=== PATIENT | female | born 1945 | race Caucasian/White ===

== ENCOUNTER 2018-09-23 15:31 | Emergency (ER) | payer MEDICARE, OTHER ==
[~2018-09-23] VITALS: Ht 160 cm; Wt 136.1 kg
[~2018-09-23 15:31] MED LIST: ACEDIPPM; DICL75ER PO; GLYB2.5; INS70/30PN; LISI20 PO; METF500; Prozac20 MG PO
[2018-09-23 16:27] LABS: BASOPHILS ABSOLUTE AUTO 0.05 K/mm3 (0.00-0.23); BASOPHILS PERCENT AUTO 0 % (0-2); EOSINOPHILS ABSOLUTE AUTO 0.03 K/mm3 (0.00-0.68); EOSINOPHILS PERCENT AUTO 0 % (0-6); Hematocrit 41.5 % (33.0-51.0); Hemoglobin 13.2 g/dL (11.5-16.0); IMMATURE GRAN ABSOLUTE AUTO 0.08 K/mm3 (0.00-0.10); IMMATURE GRAN PERCENT AUTO 1 % (0-1); LYMPHOCYTES ABSOLUTE AUTO 0.98 K/mm3 (0.84-5.20); LYMPHOCYTES PERCENT AUTO 8 % (21-46); MONOCYTES ABSOLUTE AUTO 1.24 K/mm3 (0.16-1.47); MONOCYTES PERCENT AUTO 11 % (4-13); Mean Corpuscular HGB 30.1 pg (26.0-34.0); Mean Corpuscular HGB Conc 31.8 g/dL (31.5-36.5); Mean Corpuscular Volume 95 fL (80-100); Mean Platelet Volume 11.7 fL (9.1-12.4); NEUTROPHILS ABSOLUTE AUTO 9.35 K/mm3 (1.96-9.15); NEUTROPHILS PERCENT AUTO 80 % (41-73); Platelet Count 269 K/mm3 (150-400); RDW Coefficient Variation 14.6 % (11.7-14.2); RDW Standard Deviation 51.4 fL (35.1-46.3); Red Blood Cell Count 4.39 M/mm3 (3.80-5.20); White Blood Cell Count 11.73 K/mm3 (4.00-11.30)
[2018-09-23 16:49] LABS: Alanine Aminotransfer (ALT/SGP 215 U/L (12-78); Albumin, Blood 3.5 g/dL (3.4-5.0); Albumin/Globulin Ratio 0.7 (0.8-1.8); Alk Phos 497 U/L (50-136); Anion Gap 7 mmol/L (6-16); Aspartate Aminotrans (AST/SGOT 130 U/L (12-37); Bilirubin, Total 1.1 mg/dL (0.1-1.0); Blood Urea Nitrogen 25 mg/dL (8-24); Bun/Creatinine Ratio 26.3 (12.0-20.0); CO2, Blood 18 mmol/L (21-32); Calcium, Blood 9.5 mg/dL (8.5-10.1); Chloride, Blood 109 mmol/L (98-108); Creatinine, Blood 0.95 mg/dL (0.40-1.00); Glomerular Filtration Rate >60 (60-); Glucose, Blood 142 mg/dL (70-99); Sodium, Blood 134 mmol/L (136-145); Total Protein, Blood 8.5 g/dL (6.4-8.2)
[2018-09-23 16:50] LABS: Influenza A Negative (NEGATIVE); Influenza B Negative (NEGATIVE)
[2018-09-23] MEDS ORDERED: POTCHL20ER PO (17:51)
[2018-09-23] MEDS ORDERED: Ativan1 MG PO (17:51)
[2018-09-23] MEDS ORDERED: Glipizide ER2.5 MG PO (17:51)
[2018-09-23 18:25] LABS: Source, Urine Clean Catch
[2018-09-23 18:52] LABS: Appearance, Urine Clear (Clear); Blood, Urine 2+ (Neg); Color, Urine Yellow (P-Yellow); Glucose Qualitative, Urine Neg (Neg); Ketones, Urine Neg (Neg); Leukocyte Esterase, Urine 2+ (Neg); Nitrite, Urine Pos (Neg); Protein, Urine 2+ (Neg); Urobilinogen, Urine 2+ (Normal)
[2018-09-23 19:10] LABS: Bilirubin, Urine 1+ (Neg)
[2018-09-23 19:14] LABS: Bacteria Mod /hpf; Red Blood Cells, Urine 0-2 /hpf (0-2); Squamous Epithelial Cells Few /hpf (Few)
[2018-09-23] MEDS ORDERED: HUMULIN 70100 UNIT/2 SC (22:40)
== END 2018-09-24 01:05 | disposition short-term general hospital (02) ==
LOC: ER 15:31
PROVIDERS: Physician Assistant
DX: A41.9 Sepsis, unspecified organism (principal); N39.0 Urinary tract infection, site not specified; K80.50 Calculus of bile duct without cholangitis or cholecystitis without obstruction; K63.0 Abscess of intestine; K63.1 Perforation of intestine (nontraumatic); E11.9 Type 2 diabetes mellitus without complications; I10 Essential (primary) hypertension; N28.9 Disorder of kidney and ureter, unspecified; Z87.891 Personal history of nicotine dependence; Z88.5 Allergy status to narcotic agent; Z88.8 Allergy status to other drugs, medicaments and biological substances; Z79.899 Other long term (current) drug therapy
CPT/HCPCS: 36415; 71046; 74177; 80053; 81001; 83605; 85025; 87077; 87086; 87186; 87804; 93005; 93010; 96361-59; 96365-59; 96375-59; 96376-59; 99285-25; J0696; J0744; J2405; J2543; J3010; J7030; Q9967

== ENCOUNTER 2019-02-13 16:15 | Emergency (ER) | payer MEDICARE, OTHER ==
[~2019-02-13] VITALS: Ht 157.5 cm; Wt 122.5 kg
[~2019-02-13 16:15] MED LIST changes: +Ativan1 MG PO; +Glipizide ER2.5 MG PO; +HUMULIN 70100 UNIT/2 SC; +POTCHL20ER PO
[2019-02-13 17:10] LABS: Calcium, Ionized (POC) 1.29 mmol/L (1.10-1.46); Chloride (POC) 101 mmol/L (98-108); Creatinine (POC) 1.2 mg/dL (0.6-1.0); Glucose (ISTAT POC) 81 mg/dL (70-99); Hemoglobin (POC) 13.9 g/dL (12.0-16.0); Potassium (POC) 4.7 mmol/L (3.5-5.5); Sodium (POC) 137 mmol/L (135-148); Total CO2 (POC) 30 mmol/L (21-32)
[2019-02-13 17:23] LABS: BASOPHILS ABSOLUTE AUTO 0.05 K/mm3 (0.00-0.23); BASOPHILS PERCENT AUTO 1 % (0-2); EOSINOPHILS ABSOLUTE AUTO 0.17 K/mm3 (0.00-0.68); EOSINOPHILS PERCENT AUTO 2 % (0-6); Hematocrit 40.7 % (33.0-51.0); Hemoglobin 12.6 g/dL (11.5-16.0); IMMATURE GRAN ABSOLUTE AUTO 0.02 K/mm3 (0.00-0.10); IMMATURE GRAN PERCENT AUTO 0 % (0-1); LYMPHOCYTES ABSOLUTE AUTO 2.08 K/mm3 (0.84-5.20); LYMPHOCYTES PERCENT AUTO 26 % (21-46); MONOCYTES ABSOLUTE AUTO 0.79 K/mm3 (0.16-1.47); MONOCYTES PERCENT AUTO 10 % (4-13); Mean Corpuscular Volume 94 fL (80-100); Mean Platelet Volume 11.1 fL (9.1-12.4); NEUTROPHILS ABSOLUTE AUTO 4.77 K/mm3 (1.96-9.15); NEUTROPHILS PERCENT AUTO 61 % (41-73); Platelet Count 310 K/mm3 (150-400); RDW Coefficient Variation 14.8 % (11.7-14.2); RDW Standard Deviation 51.2 fL (35.1-46.3); Red Blood Cell Count 4.34 M/mm3 (3.80-5.20); White Blood Cell Count 7.88 K/mm3 (4.00-11.30)
[2019-02-13 19:39] LABS: Source, Urine Clean Catch
[2019-02-13 19:48] LABS: Bilirubin, Urine Neg (Neg); Blood, Urine 2+ (Neg); Glucose Qualitative, Urine Neg (Neg); Ketones, Urine 1+ (Neg); Leukocyte Esterase, Urine 3+ (Neg); Nitrite, Urine Pos (Neg); Protein, Urine Neg (Neg); Specific Gravity, Urine 1.015 (1.003-1.022); Urobilinogen, Urine NORM (Normal)
[2019-02-13 19:57] LABS: Appearance, Urine Clear (Clear); Color, Urine Yellow (P-Yellow)
[2019-02-13 19:58] LABS: Bacteria Many /hpf; Red Blood Cells, Urine 0-2 /hpf (0-2); Squamous Epithelial Cells Not Seen /hpf (Few)
[2019-02-13] MEDS ORDERED: Augmentin 875-1 EACH PO (20:17)
[2019-02-13] MEDS ORDERED: HYDR1TAB94 PO (20:17)
[2019-03-09] MEDS ORDERED: TURMERIC PO (14:07)
[2019-03-09] MEDS ORDERED: Vitamin C100 M1 PO (14:07)
[2019-03-09] MEDS ORDERED: LATA.005SO RIGHTEYE (14:08)
[2019-03-09] MEDS ORDERED: Flovent 110 MCG12 GM (14:08)
[2019-03-09] MEDS ORDERED: ALBU90OI INH (14:09)
[2019-03-09] MEDS ORDERED: Norco 7.5-3251 EACH PO (14:10)
== END 2019-02-13 20:35 | disposition home or self-care (01) ==
LOC: ER 16:15
PROVIDERS: Physician Assistant
DX: K57.32 Diverticulitis of large intestine without perforation or abscess without bleeding (principal); E11.9 Type 2 diabetes mellitus without complications; Z88.5 Allergy status to narcotic agent; Z88.8 Allergy status to other drugs, medicaments and biological substances; Z79.899 Other long term (current) drug therapy; Z79.4 Long term (current) use of insulin; I10 Essential (primary) hypertension; Z87.891 Personal history of nicotine dependence
CPT/HCPCS: 36415; 74177; 80047; 81001; 85014; 85025; 87077; 87086; 87186; 99284-25; Q9967

== ENCOUNTER 2019-04-16 07:13 | Day surgery (SDC) | payer MEDICARE, OTHER ==
[~2019-04-16 07:13] MED LIST changes: +ALBU90OI INH; +Augmentin 875-1 EACH PO; +Flovent 110 MCG12 GM; +HYDR1TAB94 PO; +LATA.005SO RIGHTEYE; +Norco 7.5-3251 EACH PO; +TURMERIC PO; +Vitamin C100 M1 PO
--- NOTE | 2019-04-16 08:23 | NUR ---
to [facility] via [facility]. pre op teaching done, daughter at bedside
--- NOTE | 2019-04-16 08:43 | NUR ---
04/16/19 0843 Luann Ledbetter PROCEDURE ROOM ENDO #1. MONITOR INTACT WITH CONTINUOUS PULSE OXIMETRY AND INTERMITTENT BP.
--- NOTE | 2019-04-16 09:16 | NUR ---
INTO STEP WITH RN VSS
--- NOTE | 2019-04-16 09:54 | NUR ---
PATIENT DRESSED READY TO GO HOME. CALLED DAUGHTER AND LEFT MESSAGE TO CALL AND OR COME GET PATIENT. TOOK PATIENT IN WHEELCHAIR TO LOOK AND SEE IF HER DAUGHTER WAS SITTING IN CAR, CAR IS GONE. PATIENT RETURNED TO UNIT WITH RN AND WAITING FOR DAUGHTER TO CALL OR COME
--- NOTE | 2019-04-16 09:57 | NUR ---
PATIENT CALLING OTHER REALATIVES TO SEE ABOUT COMING TO GET HER.
--- NOTE | 2019-04-16 10:30 | NUR ---
ride is here patient is going to bathroom and will be escorted out in wheelchair.
== END 2019-04-16 23:52 | disposition home or self-care (01) ==
LOC: ORSCMMR 07:13
PROVIDERS: Surgery
PROC: 0DJD8ZZ Inspection of Lower Intestinal Tract, Via Natural or Artificial Opening Endoscopic (ICD-10-PCS; principal; 2019-04-16 08:30)
DX: K57.30 Diverticulosis of large intestine without perforation or abscess without bleeding (principal); K64.8 Other hemorrhoids; I10 Essential (primary) hypertension; G47.33 Obstructive sleep apnea (adult) (pediatric); R56.9 Unspecified convulsions; J45.909 Unspecified asthma, uncomplicated; E11.9 Type 2 diabetes mellitus without complications; Z68.42 Body mass index [BMI] 45.0-49.9, adult; E66.9 Obesity, unspecified; Z79.84 Long term (current) use of oral hypoglycemic drugs; Z79.899 Other long term (current) drug therapy
CPT/HCPCS: 82947; J2250; J2704; J7120

== ENCOUNTER → 2019-11-18 | Outpatient (CLI) | payer MEDICARE, OTHER | LOC: LAB SHORT 15:13 → LAB EV 15:13 | DX: L08.9 Local infection of the skin and subcutaneous tissue, unspecified (principal) | CPT/HCPCS: 87070; 87075; 87077; 87186; 87205 ==

== ENCOUNTER → 2021-01-17 | Outpatient (CLI) | payer MEDICARE, OTHER | END | disposition home or self-care (01) | LOC: LAB SHORT 14:52 | DX: I12.9 Hypertensive chronic kidney disease with stage 1 through stage 4 chronic kidney disease, or unspecified chronic kidney disease (principal); N18.9 Chronic kidney disease, unspecified; E78.5 Hyperlipidemia, unspecified; E55.9 Vitamin D deficiency, unspecified ==

== ENCOUNTER → 2021-01-31 | Outpatient (CLI) | payer MEDICARE, OTHER | END | disposition home or self-care (01) | LOC: LAB 17:45 → LAB SHORT 17:45 | DX: R39.9 Unspecified symptoms and signs involving the genitourinary system (principal) | CPT/HCPCS: 87077; 87086; 87147; 87186 ==

== ENCOUNTER → 2021-04-15 | Outpatient (CLI) | payer MEDICARE, OTHER ==
[2021-04-15 15:04] LABS: BASOPHILS ABSOLUTE AUTO 0.02 K/mm3 (0.00-0.23); BASOPHILS PERCENT AUTO 0 % (0-2); EOSINOPHILS ABSOLUTE AUTO 0.02 K/mm3 (0.00-0.68); EOSINOPHILS PERCENT AUTO 0 % (0-6); Hematocrit 36.6 % (33.0-51.0); Hemoglobin 11.9 g/dL (11.5-16.0); IMMATURE GRAN PERCENT AUTO 1 % (0-1); LYMPHOCYTES ABSOLUTE AUTO 1.22 K/mm3 (0.84-5.20); LYMPHOCYTES PERCENT AUTO 16 % (21-46); MONOCYTES ABSOLUTE AUTO 0.88 K/mm3 (0.16-1.47); MONOCYTES PERCENT AUTO 11 % (4-13); Mean Corpuscular HGB 28.7 pg (26.0-34.0); Mean Corpuscular HGB Conc 32.5 g/dL (31.5-36.5); Mean Corpuscular Volume 88 fL (80-100); Mean Platelet Volume 10.4 fL (9.1-12.4); NEUTROPHILS ABSOLUTE AUTO 5.52 K/mm3 (1.96-9.15); NEUTROPHILS PERCENT AUTO 71 % (41-73); Platelet Count 258 K/mm3 (150-400); RDW Coefficient Variation 13.4 % (11.7-14.2); RDW Standard Deviation 43.4 fL (35.1-46.3); Red Blood Cell Count 4.15 M/mm3 (3.80-5.20); White Blood Cell Count 7.76 K/mm3 (4.00-11.30)
[2021-04-15 15:12] LABS: Albumin, Blood 3.7 g/dL (3.4-5.0); Albumin/Globulin Ratio 0.8 (0.8-1.8); Bilirubin, Total 0.3 mg/dL (0.1-1.0); Bun/Creatinine Ratio 16.9 (12.0-20.0); Creatinine, Blood 1.24 mg/dL (0.40-1.00); Globulin, Blood 4.5 g/dL (2.2-4.0); Potassium, Blood 5.1 mmol/L (3.5-5.5); Total Protein, Blood 8.2 g/dL (6.4-8.2)
== END | disposition home or self-care (01) ==
LOC: LAB 14:55 → LAB SHORT 14:55
PROVIDERS: General Practice
DX: J45.909 Unspecified asthma, uncomplicated (principal)
CPT/HCPCS: 80053; 85025; 85379

== ENCOUNTER → 2021-04-15 | Outpatient (CLI) | payer MEDICARE, OTHER | END | disposition home or self-care (01) | LOC: LAB 14:19 → LAB SHORT 14:19 | DX: N39.0 Urinary tract infection, site not specified (principal) | CPT/HCPCS: 87077; 87086; 87186 ==

== ENCOUNTER 2021-04-24 14:00 | Emergency (ER) | payer MEDICARE, OTHER ==
[~2021-04-24] VITALS: Ht 157.5 cm; Wt 108.9 kg
== END 2021-04-24 15:28 | disposition home or self-care (01) ==
LOC: ER 14:00
DX: K59.00 Constipation, unspecified (principal); I10 Essential (primary) hypertension; E11.9 Type 2 diabetes mellitus without complications; M19.90 Unspecified osteoarthritis, unspecified site; Z87.891 Personal history of nicotine dependence; Z88.1 Allergy status to other antibiotic agents; Z88.5 Allergy status to narcotic agent; Z88.2 Allergy status to sulfonamides; Z88.8 Allergy status to other drugs, medicaments and biological substances; Z79.899 Other long term (current) drug therapy
CPT/HCPCS: 96374; 99284

== ENCOUNTER → 2021-05-02 | Outpatient (CLI) | payer MEDICARE, OTHER | END | disposition home or self-care (01) | LOC: LAB SHORT 18:58 → LAB 18:58 | DX: R30.0 Dysuria (principal) | CPT/HCPCS: 87077; 87086; 87147; 87186 ==

== ENCOUNTER 2021-10-07 14:01 | Inpatient (IN) | payer MEDICARE, OTHER ==
[~2021-10-07] VITALS: Ht 160 cm; Wt 140.7 kg
[~2021-10-07 14:01] MED LIST changes: +C COMPLEX1000 M1 PO; -Flovent 110 MCG12 GM; +Flovent Disku100 MCG IH; -Vitamin C100 M1 PO
[2021-10-07 14:52] LABS: BASOPHILS PERCENT AUTO 1 % (0-2); EOSINOPHILS ABSOLUTE AUTO 0.07 K/mm3 (0.00-0.68); EOSINOPHILS PERCENT AUTO 1 % (0-6); Hematocrit 46.1 % (33.0-51.0); Hemoglobin 14.6 g/dL (11.5-16.0); IMMATURE GRAN ABSOLUTE AUTO 0.19 K/mm3 (0.00-0.10); IMMATURE GRAN PERCENT AUTO 1 % (0-1); LYMPHOCYTES ABSOLUTE AUTO 3.75 K/mm3 (0.84-5.20); LYMPHOCYTES PERCENT AUTO 25 % (21-46); MONOCYTES ABSOLUTE AUTO 1.23 K/mm3 (0.16-1.47); MONOCYTES PERCENT AUTO 8 % (4-13); Mean Corpuscular HGB 27.8 pg (26.0-34.0); Mean Corpuscular HGB Conc 31.7 g/dL (31.5-36.5); Mean Corpuscular Volume 88 fL (80-100); Mean Platelet Volume 10.7 fL (9.1-12.4); NEUTROPHILS ABSOLUTE AUTO 9.68 K/mm3 (1.96-9.15); NEUTROPHILS PERCENT AUTO 64 % (41-73); Platelet Count 315 K/mm3 (150-400); RDW Coefficient Variation 14.8 % (11.7-14.2); RDW Standard Deviation 47.4 fL (35.1-46.3); Red Blood Cell Count 5.26 M/mm3 (3.80-5.20); White Blood Cell Count 15.02 K/mm3 (4.00-11.30)
[2021-10-07 15:06] LABS: Albumin, Blood 3.8 g/dL (3.4-5.0); Albumin/Globulin Ratio 0.9 (0.8-1.8); Bilirubin, Total 0.7 mg/dL (0.1-1.0); Bun/Creatinine Ratio 30.1 (12.0-20.0); Calcium, Blood 9.9 mg/dL (8.5-10.1); Creatinine, Blood 1.03 mg/dL (0.40-1.00); Globulin, Blood 4.4 g/dL (2.2-4.0); Total Protein, Blood 8.2 g/dL (6.4-8.2)
[2021-10-07] MEDS ORDERED: BASAGLAR K100 UNIT/1 SC (15:10)
[2021-10-07] MEDS ORDERED: NOVOLIN 70100 UNIT/3 SC (15:14)
[2021-10-07] MEDS ORDERED: FISH OIL 1,2001 EAC4 PO (18:39)
[2021-10-07] MEDS ORDERED: ZINC220 PO (18:40)
[2021-10-07] MEDS ORDERED: Folic Acid PO (18:40)
--- NOTE | 2021-10-07 18:56 | NUR ---
TALKED TO BEFORE PATIENT ARRIVES TO CLARIFY. NPO FOR BREAKFAST AND CAN EAT DINNER TONIGHT. LABTELOL FOR SYS >220.
--- NOTE | 2021-10-07 19:20 | NUR ---
ARRIVES TO ROOM 1814. ASSISTED TO MED FLOOR BED. NORMALLY GETS AROUND IN SCOOTER. ALERT. ORIENTED. PLEASANT. NO SLURRED SPEECH. LUNGS CLEAR. NO SIGNS OF WOUNDS. FULL EVAL NOT DONE WITH NIGHT RN AWARE. PER HE IS OK WITH HEART RATE 120-130'S AND TO CALL HIM IF SUSTAINED 140'S. REPORT GIVEN TO WAYNE WARREN. ANSWER ALL QUESTIONS.
--- NOTE | 2021-10-07 20:35 | NUR ---
ALERTED OF [facility] ON TELEMETRY W/HR SUSTAINING 120'S-130'S W/NO NEW ORDERS RECIEVED. HE STATED TO ALERT MD IF HR SUSTAINS 150'S. HE WAS ALSO MADE AWARE OF HTN BUT DOES NOT MEET PRN LABETOLOL PARAMETERS.
--- NOTE | 2021-10-07 21:58 | NUR ---
ALERTED TO HR SUSTAINING 130'S, HIGH OF 140'S IN S.TACH WHILE RESTING. SHE REPORTS MILD SOB BUT NO CP OR RESPIRATORY DISTRESS. SPO2 WNL ON RA. METOPROLOL 5MG IV X1 RX'D AND RECIEVED AT THIS TIME. WILL MONITOR FOR EFFECT. HE WAS ALSO MADE AWARE OF MISSING HOME MEDS AND NEED FOR CPAP/BIPAP PROTOCOL.
--- NOTE | 2021-10-07 22:38 | NUR ---
ALERTED OF HR SUSTAINING 120'S W/NEW ORDERS RECIEVED FOR NS AT 75ML/HR X1L.
--- NOTE | 2021-10-07 23:40 | NUR ---
PT HR SLIGHTLY IMPROVED, CURRENTLY 110-118 AND SHE REMAINS ASYMPTOMATIC OF CARDIAC OR RESPIRATORY DISTRESS.
--- NOTE | 2021-10-08 00:20 | NUR ---
PT C/O BLOOD SUGAR FEELING LOW, CBG NOW 128 W/SNACK PROVIDED. WCTM CLOSELY AND TREAT/ALERT MD IF NEEDED.
--- NOTE | 2021-10-08 04:34 | NUR ---
ALERTED TO SUSTAINED TACHYCARDIA T/O NOCTE W/HR 110-120'S. SHE'S ASYMPTOMATIC OF CARDIAC DISTRESS BUT MD RX'D METOPROLOL 5MG IV X1 PRN FOR SUSTAINED HR>120'S. WILL MONITOR CLOSELY AND ASSESS NEED.
--- NOTE | 2021-10-08 05:02 | NUR ---
SUMMARY: PT A/OX4, CALLS APPROPRIATELY TO SPECIFY NEEDS AND IS PLEASANT AND COOPERATIVE W/CARE. [place] [facility]ES MOTOR SCOOTER AT HOME FOR DISTANCE. NEURO OBS UNCHANGED AND NO S/S STROKE/DEFICITS. BP WAS STABLE BUT PT WAS TACHY ON TELEMETRY IN S.TACH AND A.FIB, HR 110-130'S AND TOUCHED 140'S AT BEGINNING OF SHIFT. METROPROLOL 5MG IV X1 GIVEN FOR MINIMAL EFFECT THEN NS COMMENCED AT 75ML/HR FOR GRADUAL RATE IMPROVEMENT. PT HAS ADDITIONAL X1 DOSE IV METOPROLOL PRN FOR SUSTAINED HR>120'S BUT IT HASN'T BEEN NEEDED. SHE'S BEEN ASYMPTOMATIC OF CARDIAC/RESPIRATORY DISTRESS BUT C/O FEELING HYPOGLYCEMIC WHEN CBG WAS 128, SNACK PROVIDED AND PT REPORTED RELIEF. SHE TOLERATED CPAP W/CONT BIOX INTACT. NO ACUTE CHANGES, VSS/AFEBRILE. WCTM AND REPORT TO DAY RN.
[2021-10-08 05:20] LABS: BASOPHILS ABSOLUTE AUTO 0.07 K/mm3 (0.00-0.23); BASOPHILS PERCENT AUTO 1 % (0-2); EOSINOPHILS ABSOLUTE AUTO 0.07 K/mm3 (0.00-0.68); EOSINOPHILS PERCENT AUTO 1 % (0-6); Hematocrit 45.9 % (33.0-51.0); Hemoglobin 14.4 g/dL (11.5-16.0); IMMATURE GRAN ABSOLUTE AUTO 0.17 K/mm3 (0.00-0.10); IMMATURE GRAN PERCENT AUTO 1 % (0-1); LYMPHOCYTES ABSOLUTE AUTO 3.57 K/mm3 (0.84-5.20); LYMPHOCYTES PERCENT AUTO 27 % (21-46); MONOCYTES ABSOLUTE AUTO 1.21 K/mm3 (0.16-1.47); MONOCYTES PERCENT AUTO 9 % (4-13); Mean Corpuscular HGB 27.6 pg (26.0-34.0); Mean Corpuscular HGB Conc 31.4 g/dL (31.5-36.5); Mean Corpuscular Volume 88 fL (80-100); Mean Platelet Volume 10.7 fL (9.1-12.4); NEUTROPHILS ABSOLUTE AUTO 8.19 K/mm3 (1.96-9.15); NEUTROPHILS PERCENT AUTO 62 % (41-73); Platelet Count 299 K/mm3 (150-400); RDW Coefficient Variation 14.7 % (11.7-14.2); RDW Standard Deviation 47.5 fL (35.1-46.3); Red Blood Cell Count 5.22 M/mm3 (3.80-5.20); White Blood Cell Count 13.28 K/mm3 (4.00-11.30)
[2021-10-08 05:52] LABS: LDL/HDL RATIO 2.5; Magnesium, Blood 1.8 mg/dL (1.6-2.4); Very Low Density Lipoprot Chol 29 mg/dL (6-32)
[2021-10-08 05:53] LABS: Anion Gap 6 mmol/L (6-16); Blood Urea Nitrogen 29 mg/dL (8-24); Bun/Creatinine Ratio 27.1 (12.0-20.0); CHOL/HDL RATIO 4.2; CO2, Blood 26 mmol/L (21-32); Calcium, Blood 9.5 mg/dL (8.5-10.1); Chloride, Blood 103 mmol/L (98-108); Cholesterol 177 mg/dL (50-200); Creatinine, Blood 1.07 mg/dL (0.40-1.00); Glomerular Filtration Rate 50 (60-); Glucose, Blood 144 mg/dL (70-99); HDL Cholesterol 42 mg/dL (>39); Low Density Lipoprotein Chol 106 mg/dL (0-110); Potassium, Blood 4.3 mmol/L (3.5-5.5); Sodium, Blood 135 mmol/L (136-145); Triglycerides 145 mg/dL (30-160)
--- NOTE | 2021-10-08 06:45 | NUR ---
X1 PRN LOPRESSOR 5MG IV GIVEN FOR AFIB HR 130'S, SUSTAINING>120'S PER RX. BP 118/75 AND HR 132 BPM. NO S/S CARDIAC DISTRESS.
--- NOTE | 2021-10-08 16:37 | NUR ---
CARE TAKEN OVER FROM MARGARITA WARREN. NO ACUTE CHANGES AT THIS TIME.AO AND COOPERATIVE OF CARE. P1 ASSIST TO BEDSIDE COMMODE. PT HAS BEEN SINUS TACH IN THE 130s AND DR CULP IS AWARE. NO DISTRESS NOTED CALL LIGHT WITHIN REACH WILL CONTINUE TO MONITOR.
--- NOTE | 2021-10-09 04:49 | NUR ---
SHIFT SUMMARY S/P CVA, A/O, VSS OTHER THAN MILDLY ELEVATED HEART RATE IN THE LOW 100'S (SEE VITALS), SOME MILD SOB c EXERTION BUT RECOVERS QUICKLY AND WITHOUT O2 SUPPLEMENTATION. NO ACUTE EVENTS THIS SHIFT, CALL LIGHT IN REACH, WILL CTM AND REPORT TO ONCOMING DAY RN.
[2021-10-09 04:56] LABS: BASOPHILS ABSOLUTE AUTO 0.07 K/mm3 (0.00-0.23); BASOPHILS PERCENT AUTO 1 % (0-2); EOSINOPHILS ABSOLUTE AUTO 0.12 K/mm3 (0.00-0.68); EOSINOPHILS PERCENT AUTO 1 % (0-6); Hematocrit 44.1 % (33.0-51.0); IMMATURE GRAN ABSOLUTE AUTO 0.07 K/mm3 (0.00-0.10); IMMATURE GRAN PERCENT AUTO 1 % (0-1); LYMPHOCYTES ABSOLUTE AUTO 2.52 K/mm3 (0.84-5.20); LYMPHOCYTES PERCENT AUTO 21 % (21-46); MONOCYTES ABSOLUTE AUTO 1.06 K/mm3 (0.16-1.47); MONOCYTES PERCENT AUTO 9 % (4-13); Mean Corpuscular HGB 27.7 pg (26.0-34.0); Mean Corpuscular HGB Conc 31.7 g/dL (31.5-36.5); Mean Corpuscular Volume 87 fL (80-100); Mean Platelet Volume 10.4 fL (9.1-12.4); NEUTROPHILS ABSOLUTE AUTO 8.25 K/mm3 (1.96-9.15); NEUTROPHILS PERCENT AUTO 68 % (41-73); Platelet Count 234 K/mm3 (150-400); RDW Coefficient Variation 14.7 % (11.7-14.2); Red Blood Cell Count 5.05 M/mm3 (3.80-5.20); White Blood Cell Count 12.09 K/mm3 (4.00-11.30)
[2021-10-09 05:17] LABS: Bun/Creatinine Ratio 29.1 (12.0-20.0); Calcium, Blood 9.1 mg/dL (8.5-10.1); Potassium, Blood 3.9 mmol/L (3.5-5.5)
[2021-10-09 07:11] LABS: HEMOGLOBIN A1C 8.3 % (4.8-5.6)
[2021-10-09 14:58] LABS: Anti-Xa UFH, PHA Monitoring <0.10 IU/mL; International Normalized Ratio 1.13; Prothrombin Time Results 11.8 Sec (9.7-11.5)
--- NOTE | 2021-10-09 18:41 | NUR ---
SHIFT SUMMARY THE PATIENT IS ALERT AND ORIENTED X4, PLEASANT AND COOPERATIVE WITH CARE. THE PATIENT IS ON TELE, RA. 70/30 INSULIN GIVEN THIS SHIFT HALF OF DOSE GIVEN PER DR. CULP'S ORDERS VIA TELEPHONE. THE PATIENT TOLERATED WELL. THE PATIENT CURRENTLY HAS A HEPARIN DRIP RUNNING VERIFIED BAG WITH VINCENT WARREN. THE PATIENT DID COMPLAIN OF SOME INDIGESTION BUT IT SUBSIDED ON ITS OWN SHORTLY AFTER. THE PATIENT HAS BEEN A SBA TO THE BSC THIS SHIFT. THE PATIENT WAS UNABLE TO GET AN MRI THIS SHIFT DR. CULP NOTIFIED. MEDS WHOLE WITH WATER NO SWALLOWING DEFECITS. CALL LIGHT WITHIN REACH, BED IN LOWEST POSITION.
--- NOTE | 2021-10-09 22:00 | NUR ---
CALLED HOSPITALIST INFORMED HOSPITALIST OF 151 GLUCOSE. INFORMED HOSPITALIST THAT PREVIOUS DOSE OF INSULIN GIVEN A HALF DOSE. INFORMED HIM OF INSULIN HELD COMPLETELY THE DAY BEFORE. INSULIN ORDERED HELD
--- NOTE | 2021-10-10 05:11 | NUR ---
SHIFT SUMMARY ADMITTED FOR CVA. FULL CODE. CONTACT PRECAUTIONS FOR ESBL IN URINE. TELEMETRY: TACHY @ 124 BPM. ACHS CHEMSTICKS. 70/30 INSULIN HELD THIS SHIFT, SEE PREVIOUS NOTE. SHE IS INDEPENDENT TO BSC. HEPARIN IS INFUSING ORDERED. HOME CPAP @ . VASCULAR CONSULT HAS BEEN NOTIFIED. CONTINUOUS PULSE OX IN PLACE. CARDIAC DIET. SHE IS ON PLAVIX.
[2021-10-10] MEDS ORDERED: Vitamin D1000 UNI1 PO (11:20)
[2021-10-10] MEDS ORDERED: FOLIC ACID0.4 MG PO (13:55)
[2021-10-10] MEDS ORDERED: CLOP75 PO (13:57)
[2021-10-10] MEDS ORDERED: ASPI81CH PO (13:57)
[2021-10-10] MEDS ORDERED: EZET10 PO (13:57)
--- NOTE | 2021-10-10 15:50 | NUR ---
DISCHARGE NOTE THE PATIENT WAS DISCHARGED THIS SHIFT AT 1430 VIA WHEELCHAIR WITH DAUGHTER. THE PATIENT VERBALIZED UNDERSTANDING OF DISCHARGE INSTRUCTIONS AND FOLLOW UP CARE. THE IV WAS DC'D. VSS. NOTHING FURTHER TO REPORT.
--- NOTE | 2021-10-11 09:41 | NUR ---
Received referral from [facility] [employer] (Sindhu Duarte) on 10/09/2021. Patient discharged 10/10/2021 and was to have orders for home health and elected [facility]. However, review of patient's records today- 10/11/2021 indicate that discharging provider (Dr. Ocampo) did not order home health upon discharge. No further interventions required. Sharon Mcdaniel Referral Liaison
== END 2021-10-10 14:55 | disposition home or self-care (01) | DRG 66 ==
LOC: ER 14:01 → MEDS 17:19
PROVIDERS: Emergency Medicine; Pharmacist; ADMIT Internal Medicine
DX: I63.9 Cerebral infarction, unspecified (principal); R47.81 Slurred speech; M19.90 Unspecified osteoarthritis, unspecified site; I12.9 Hypertensive chronic kidney disease with stage 1 through stage 4 chronic kidney disease, or unspecified chronic kidney disease; N18.30 Chronic kidney disease, stage 3 unspecified; F32.A Depression, unspecified; F41.9 Anxiety disorder, unspecified; R00.0 Tachycardia, unspecified; G89.4 Chronic pain syndrome; E11.22 Type 2 diabetes mellitus with diabetic chronic kidney disease; Z90.49 Acquired absence of other specified parts of digestive tract; Z90.89 Acquired absence of other organs; Z98.890 Other specified postprocedural states; Z87.891 Personal history of nicotine dependence; Z88.1 Allergy status to other antibiotic agents; Z88.2 Allergy status to sulfonamides; Z88.8 Allergy status to other drugs, medicaments and biological substances; Z79.4 Long term (current) use of insulin; Z79.899 Other long term (current) drug therapy
CPT/HCPCS: 36415; 70450; 70496; 70498; 71045; 80048; 80053; 80061; 82947; 83036; 83735; 84443; 85025; 85520; 85610; 85730; 92610; 93005; 93010; 94640; 94660; 94664; 94760; 94762; 97110; 97116; 97161; 97165; 97530; 99285-25; A9270; C8929; J1644; J1815; J7030; Q9957; Q9967

== ENCOUNTER → 2021-10-26 | Outpatient (CLI) | payer MEDICARE, OTHER ==
[~2021-10-26] MED LIST changes: +ASPI81CH PO; +BASAGLAR K100 UNIT/1 SC; +CLOP75 PO; +DILT60 PO; +EZET10 PO; +FISH OIL 1,2001 EAC4 PO; +FOLIC ACID0.4 MG PO; +Folic Acid PO; +NOVOLIN 70100 UNIT/3 SC; +Vitamin D1000 UNI1 PO; +ZINC220 PO
[2021-10-26 16:43] LABS: BASOPHILS ABSOLUTE AUTO 0.04 K/mm3 (0.00-0.23); BASOPHILS PERCENT AUTO 0 % (0-2); EOSINOPHILS ABSOLUTE AUTO 0.17 K/mm3 (0.00-0.68); EOSINOPHILS PERCENT AUTO 2 % (0-6); Hematocrit 38.8 % (33.0-51.0); Hemoglobin 12.5 g/dL (11.5-16.0); IMMATURE GRAN ABSOLUTE AUTO 0.05 K/mm3 (0.00-0.10); IMMATURE GRAN PERCENT AUTO 1 % (0-1); LYMPHOCYTES ABSOLUTE AUTO 2.09 K/mm3 (0.84-5.20); LYMPHOCYTES PERCENT AUTO 21 % (21-46); MONOCYTES ABSOLUTE AUTO 0.74 K/mm3 (0.16-1.47); MONOCYTES PERCENT AUTO 7 % (4-13); Mean Corpuscular HGB 28.6 pg (26.0-34.0); Mean Corpuscular HGB Conc 32.2 g/dL (31.5-36.5); Mean Corpuscular Volume 89 fL (80-100); Mean Platelet Volume 10.8 fL (9.1-12.4); NEUTROPHILS ABSOLUTE AUTO 6.94 K/mm3 (1.96-9.15); NEUTROPHILS PERCENT AUTO 69 % (41-73); Platelet Count 268 K/mm3 (150-400); RDW Coefficient Variation 15.6 % (11.7-14.2); RDW Standard Deviation 50.2 fL (35.1-46.3); Red Blood Cell Count 4.37 M/mm3 (3.80-5.20); White Blood Cell Count 10.03 K/mm3 (4.00-11.30)
[2021-10-26 16:52] LABS: Albumin, Blood 3.7 g/dL (3.4-5.0); Albumin/Globulin Ratio 0.9 (0.8-1.8); Bilirubin, Total 0.4 mg/dL (0.1-1.0); Bun/Creatinine Ratio 23.9 (12.0-20.0); Calcium, Blood 9.7 mg/dL (8.5-10.1); Creatinine, Blood 1.17 mg/dL (0.40-1.00); Globulin, Blood 4.1 g/dL (2.2-4.0); Potassium, Blood 4.4 mmol/L (3.5-5.5); Total Protein, Blood 7.8 g/dL (6.4-8.2)
== END | disposition home or self-care (01) ==
LOC: LAB SHORT 16:35
PROVIDERS: Physician Assistant
DX: K92.1 Melena (principal); R06.00 Dyspnea, unspecified; R60.9 Edema, unspecified
CPT/HCPCS: 80053; 83880; 85025

== ENCOUNTER 2021-10-31 20:27 | Emergency (ER) | payer MEDICARE, OTHER ==
[~2021-10-31] VITALS: Ht 160 cm; Wt 127.9 kg
[2021-10-31 21:07] LABS: BASOPHILS ABSOLUTE AUTO 0.06 K/mm3 (0.00-0.23); BASOPHILS PERCENT AUTO 1 % (0-2); EOSINOPHILS ABSOLUTE AUTO 0.18 K/mm3 (0.00-0.68); EOSINOPHILS PERCENT AUTO 2 % (0-6); Hematocrit 36.8 % (33.0-51.0); IMMATURE GRAN ABSOLUTE AUTO 0.09 K/mm3 (0.00-0.10); IMMATURE GRAN PERCENT AUTO 1 % (0-1); LYMPHOCYTES ABSOLUTE AUTO 1.74 K/mm3 (0.84-5.20); LYMPHOCYTES PERCENT AUTO 18 % (21-46); MONOCYTES ABSOLUTE AUTO 0.76 K/mm3 (0.16-1.47); MONOCYTES PERCENT AUTO 8 % (4-13); Mean Corpuscular HGB 29.1 pg (26.0-34.0); Mean Corpuscular HGB Conc 32.6 g/dL (31.5-36.5); Mean Corpuscular Volume 89 fL (80-100); Mean Platelet Volume 10.5 fL (9.1-12.4); NEUTROPHILS ABSOLUTE AUTO 7.12 K/mm3 (1.96-9.15); NEUTROPHILS PERCENT AUTO 72 % (41-73); Platelet Count 294 K/mm3 (150-400); RDW Coefficient Variation 15.3 % (11.7-14.2); RDW Standard Deviation 49.9 fL (35.1-46.3); Red Blood Cell Count 4.13 M/mm3 (3.80-5.20); White Blood Cell Count 9.95 K/mm3 (4.00-11.30)
[2021-10-31 21:30] LABS: Alanine Aminotransfer (ALT/SGP 30 U/L (12-78); Albumin, Blood 3.9 g/dL (3.4-5.0); Albumin/Globulin Ratio 0.9 (0.8-1.8); Alk Phos 63 U/L (50-136); Anion Gap 8 mmol/L (6-16); Aspartate Aminotrans (AST/SGOT 18 U/L (12-37); Bilirubin, Total 0.4 mg/dL (0.1-1.0); Blood Urea Nitrogen 27 mg/dL (8-24); Bun/Creatinine Ratio 30.1 (12.0-20.0); CO2, Blood 27 mmol/L (21-32); Calcium, Blood 9.8 mg/dL (8.5-10.1); Chloride, Blood 101 mmol/L (98-108); Globulin, Blood 4.2 g/dL (2.2-4.0); Glomerular Filtration Rate >60 (60-); Glucose, Blood 149 mg/dL (70-99); Sodium, Blood 136 mmol/L (136-145); Total Protein, Blood 8.1 g/dL (6.4-8.2)
== END 2021-10-31 23:34 | disposition left against medical advice (07) ==
LOC: ER 20:27
PROVIDERS: Student in an Organized Health Care Education/Training Program
DX: N93.9 Abnormal uterine and vaginal bleeding, unspecified (principal); Z79.899 Other long term (current) drug therapy; Z79.4 Long term (current) use of insulin; Z79.82 Long term (current) use of aspirin; Z79.02 Long term (current) use of antithrombotics/antiplatelets
CPT/HCPCS: 36415; 76830; 76856; 80053; 85025; 99284-25

== ENCOUNTER 2022-02-11 14:56 | Emergency (ER) | payer MEDICARE, OTHER ==
[~2022-02-11] VITALS: Ht 160 cm; Wt 136.1 kg
[~2022-02-11 14:56] MED LIST changes: +DILTIAZEM 24HR120 M4 PO; +LATANOPROST2.5 M3 RIGHTEYE; +XARELTO20 M1 PO
[2022-02-11 15:45] LABS: BASOPHILS ABSOLUTE AUTO 0.08 K/mm3 (0.00-0.23); BASOPHILS PERCENT AUTO 1 % (0-2); EOSINOPHILS ABSOLUTE AUTO 0.13 K/mm3 (0.00-0.68); EOSINOPHILS PERCENT AUTO 1 % (0-6); Hematocrit 33.4 % (33.0-51.0); Hemoglobin 9.9 g/dL (11.5-16.0); IMMATURE GRAN ABSOLUTE AUTO 0.07 K/mm3 (0.00-0.10); IMMATURE GRAN PERCENT AUTO 1 % (0-1); LYMPHOCYTES ABSOLUTE AUTO 2.06 K/mm3 (0.84-5.20); LYMPHOCYTES PERCENT AUTO 19 % (21-46); MONOCYTES ABSOLUTE AUTO 1.13 K/mm3 (0.16-1.47); MONOCYTES PERCENT AUTO 10 % (4-13); Mean Corpuscular HGB 22.9 pg (26.0-34.0); Mean Corpuscular HGB Conc 29.6 g/dL (31.5-36.5); Mean Corpuscular Volume 77 fL (80-100); Mean Platelet Volume 9.6 fL (9.1-12.4); NEUTROPHILS ABSOLUTE AUTO 7.65 K/mm3 (1.96-9.15); NEUTROPHILS PERCENT AUTO 69 % (41-73); Platelet Count 394 K/mm3 (150-400); RDW Coefficient Variation 24.8 % (11.7-14.2); RDW Standard Deviation 68.1 fL (35.1-46.3); Red Blood Cell Count 4.32 M/mm3 (3.80-5.20); White Blood Cell Count 11.12 K/mm3 (4.00-11.30)
[2022-02-11 16:06] LABS: Albumin, Blood 3.7 g/dL (3.4-5.0); Albumin/Globulin Ratio 0.9 (0.8-1.8); Bilirubin, Total 0.4 mg/dL (0.1-1.0); Bun/Creatinine Ratio 17.1 (12.0-20.0); Calcium, Blood 9.6 mg/dL (8.5-10.1); Globulin, Blood 4.2 g/dL (2.2-4.0); Potassium, Blood 3.8 mmol/L (3.5-5.5); Total Protein, Blood 7.9 g/dL (6.4-8.2)
== END 2022-02-11 19:25 | disposition home or self-care (01) ==
LOC: ER 14:56
PROVIDERS: Physician Assistant
DX: K92.1 Melena (principal); D64.9 Anemia, unspecified; I12.9 Hypertensive chronic kidney disease with stage 1 through stage 4 chronic kidney disease, or unspecified chronic kidney disease; E11.22 Type 2 diabetes mellitus with diabetic chronic kidney disease; N18.30 Chronic kidney disease, stage 3 unspecified; I48.91 Unspecified atrial fibrillation; F41.9 Anxiety disorder, unspecified; F32.A Depression, unspecified; Z79.899 Other long term (current) drug therapy; Z79.84 Long term (current) use of oral hypoglycemic drugs; Z88.1 Allergy status to other antibiotic agents; Z88.8 Allergy status to other drugs, medicaments and biological substances
CPT/HCPCS: 36415; 80053; 85025; 86850; 86900; 86901

== ENCOUNTER 2022-06-30 16:58 | Emergency (ER) | payer MEDICARE, OTHER ==
[~2022-06-30] VITALS: Ht 160 cm; Wt 136.1 kg
[2022-06-30] MEDS ORDERED: TRIDERM28.4 GM TOP (19:56)
[2022-06-30] MEDS ORDERED: MUPIROCIN1 G1 TOP (19:56)
== END 2022-06-30 20:29 | disposition home or self-care (01) ==
LOC: ER 16:58
DX: R23.4 Changes in skin texture (principal); I12.9 Hypertensive chronic kidney disease with stage 1 through stage 4 chronic kidney disease, or unspecified chronic kidney disease; E11.22 Type 2 diabetes mellitus with diabetic chronic kidney disease; N18.30 Chronic kidney disease, stage 3 unspecified; Z88.8 Allergy status to other drugs, medicaments and biological substances; Z88.1 Allergy status to other antibiotic agents; Z88.5 Allergy status to narcotic agent; Z79.899 Other long term (current) drug therapy; Z79.4 Long term (current) use of insulin; Z86.73 Personal history of transient ischemic attack (TIA), and cerebral infarction without residual deficits
CPT/HCPCS: 99282; A9270

== ENCOUNTER → 2022-08-01 | Outpatient (CLI) | payer MEDICARE, OTHER ==
[~2022-08-01] MED LIST changes: +MUPIROCIN1 G1 TOP; +TRIDERM28.4 GM TOP
== END ==
LOC: LAB SHORT 14:46 → PLD 14:46
DX: D48.5 Neoplasm of uncertain behavior of skin (principal)
CPT/HCPCS: 88305; 88312

== ENCOUNTER 2022-10-16 11:06 | Observation (INO) | payer MEDICARE, OTHER ==
[~2022-10-16] VITALS: Ht 160 cm; Wt 148.0 kg
[2022-10-16 11:37] LABS: BASOPHILS ABSOLUTE AUTO 0.07 K/mm3 (0.00-0.23); BASOPHILS PERCENT AUTO 0 % (0-2); EOSINOPHILS ABSOLUTE AUTO 0.07 K/mm3 (0.00-0.68); EOSINOPHILS PERCENT AUTO 0 % (0-6); Hematocrit 34.7 % (33.0-51.0); Hemoglobin 10.8 g/dL (11.5-16.0); IMMATURE GRAN ABSOLUTE AUTO 0.09 K/mm3 (0.00-0.10); IMMATURE GRAN PERCENT AUTO 1 % (0-1); LYMPHOCYTES ABSOLUTE AUTO 1.44 K/mm3 (0.84-5.20); LYMPHOCYTES PERCENT AUTO 8 % (21-46); MONOCYTES ABSOLUTE AUTO 1.69 K/mm3 (0.16-1.47); MONOCYTES PERCENT AUTO 9 % (4-13); Mean Corpuscular HGB 26.9 pg (26.0-34.0); Mean Corpuscular HGB Conc 31.1 g/dL (31.5-36.5); Mean Corpuscular Volume 87 fL (80-100); Mean Platelet Volume 10.1 fL (9.1-12.4); NEUTROPHILS ABSOLUTE AUTO 14.64 K/mm3 (1.96-9.15); NEUTROPHILS PERCENT AUTO 81 % (41-73); Platelet Count 325 K/mm3 (150-400); RDW Coefficient Variation 16.8 % (11.7-14.2); RDW Standard Deviation 52.6 fL (35.1-46.3); Red Blood Cell Count 4.01 M/mm3 (3.80-5.20)
[2022-10-16 11:51] LABS: Albumin, Blood 3.5 g/dL (3.4-5.0); Albumin/Globulin Ratio 0.8 (0.8-1.8); Bilirubin, Total 0.6 mg/dL (0.1-1.0); Bun/Creatinine Ratio 25.1 (12.0-20.0); Calcium, Blood 9.6 mg/dL (8.5-10.1); Creatinine, Blood 0.92 mg/dL (0.40-1.00); Globulin, Blood 4.3 g/dL (2.2-4.0); Potassium, Blood 4.9 mmol/L (3.5-5.5); Total Protein, Blood 7.8 g/dL (6.4-8.2)
[2022-10-16 21:07] VITALS: BP 150/134
--- NOTE | 2022-10-16 21:30 | NUR ---
ARRIVAL TO PCU2 PT ARRIVED TO PCU2 AT APPROXIMATELY 0. PT TRANSFERED FROM ER WHEELCHAIR TO HOSPITAL BED WITH SBA. PT A&Ox4, COMMUNICATES NEEDS APPROPRIATELY. ORIENTED TO CALL LIGHT/UNIT. BP STABLE, AFIB 100-120's, DENIES CP/PRESSURE. SpO2> 92% RA, PT REPORTS MILD SOB AT REST, MOD SOB WITH ACTIVITY. RR ELEVATED. RT SET CPAP UP AT BEDSIDE. PT CONTINENT OF URINE, USED BSC WITH SBA. NO BM AT THIS TIME. CALL LIGHT IN REACH, BED IN LOWEST POSITION.
[2022-10-16 23:31] VITALS: BP 112/71
[2022-10-17 03:57] VITALS: BP 98/62
[2022-10-17 04:21] LABS: BASOPHILS ABSOLUTE AUTO 0.05 K/mm3 (0.00-0.23); BASOPHILS PERCENT AUTO 0 % (0-2); EOSINOPHILS ABSOLUTE AUTO 0.08 K/mm3 (0.00-0.68); EOSINOPHILS PERCENT AUTO 1 % (0-6); Hematocrit 30.4 % (33.0-51.0); Hemoglobin 9.5 g/dL (11.5-16.0); IMMATURE GRAN ABSOLUTE AUTO 0.07 K/mm3 (0.00-0.10); IMMATURE GRAN PERCENT AUTO 1 % (0-1); LYMPHOCYTES ABSOLUTE AUTO 1.78 K/mm3 (0.84-5.20); LYMPHOCYTES PERCENT AUTO 16 % (21-46); MONOCYTES ABSOLUTE AUTO 1.39 K/mm3 (0.16-1.47); MONOCYTES PERCENT AUTO 12 % (4-13); Mean Corpuscular HGB 27.1 pg (26.0-34.0); Mean Corpuscular HGB Conc 31.3 g/dL (31.5-36.5); Mean Corpuscular Volume 87 fL (80-100); Mean Platelet Volume 10.7 fL (9.1-12.4); NEUTROPHILS ABSOLUTE AUTO 7.83 K/mm3 (1.96-9.15); NEUTROPHILS PERCENT AUTO 70 % (41-73); Platelet Count 270 K/mm3 (150-400); RDW Coefficient Variation 16.9 % (11.7-14.2); RDW Standard Deviation 53.2 fL (35.1-46.3); Red Blood Cell Count 3.51 M/mm3 (3.80-5.20)
--- NOTE | 2022-10-17 04:41 | NUR ---
SHIFT SUMMARY PT A&Ox4, CALLS AND COMMUNICATES NEEDS APPROPRIATELY. BP STABLE, AFIB 90-110's DENIES CP/PRESSURE. SpO2> 92% RA OR CPAP WHILE ASLEEP, PT REPORTS MILD SOB AT REST, MOD-EXTREME SOB WITH ACTIVITY. SpO2 REMAINS >92% WITH ACTIVITY ON RA. RR RELEVATED. PT CONTINENT OF URINE, USED BSC WITH SBA. NO BM AT THIS TIME. NO OTHER EVENTS, WILL REPORT TO ONCOMING RN.
[2022-10-17 04:43] LABS: Bun/Creatinine Ratio 25.9 (12.0-20.0); Calcium, Blood 8.9 mg/dL (8.5-10.1); Creatinine, Blood 1.16 mg/dL (0.40-1.00); Potassium, Blood 4.4 mmol/L (3.5-5.5)
[2022-10-17 07:25] VITALS: BP 112/79
--- NOTE | 2022-10-17 07:43 | NUR ---
Pt states she is feeling much better than yesterday; states that she has no chest discomfort, and breathing is better. Assisted up to the BSC to void and said that her breathing felt mormal with the activity. She usually uses a scooter for mobility. Dyspnea noted with the activity. Spo2 remains greater than 90%, while on room air. Atrial fibrillation, rate controlled less than 110 bpm. States that she had some diarrhea for months, but that 2 weeks ago it started to clear up. Last BM was yesterday, and she says it was more solid. Reports a GI bleed with endo and colonoscopy over a year ago, and has been on her Xarelto since that resolved.
[2022-10-17 12:04] VITALS: BP 134/81
[2022-10-17] MEDS ORDERED: XARELTO20 MG PO (14:30)
== END 2022-10-17 17:44 | disposition home or self-care (01) ==
LOC: ER 11:06 → PCU 11:07
PROVIDERS: Emergency Medicine; Nurse Practitioner Acute Care; ADMIT Family Medicine
DX: R07.9 Chest pain, unspecified (principal); E66.01 Morbid (severe) obesity due to excess calories; Z68.43 Body mass index [BMI] 50.0-59.9, adult; I48.91 Unspecified atrial fibrillation; E11.22 Type 2 diabetes mellitus with diabetic chronic kidney disease; I12.9 Hypertensive chronic kidney disease with stage 1 through stage 4 chronic kidney disease, or unspecified chronic kidney disease; N18.30 Chronic kidney disease, stage 3 unspecified; F41.9 Anxiety disorder, unspecified; G47.33 Obstructive sleep apnea (adult) (pediatric); F32.A Depression, unspecified; Z87.11 Personal history of peptic ulcer disease; Z86.73 Personal history of transient ischemic attack (TIA), and cerebral infarction without residual deficits; Z88.8 Allergy status to other drugs, medicaments and biological substances; Z88.2 Allergy status to sulfonamides; Z88.1 Allergy status to other antibiotic agents; Z88.5 Allergy status to narcotic agent; Z79.899 Other long term (current) drug therapy; Z79.01 Long term (current) use of anticoagulants; Z79.4 Long term (current) use of insulin
CPT/HCPCS: 36415; 71046; 71260; 80048; 80053; 82947; 83605; 83880; 84145; 84484; 85025; 85651; 86140; 93005; 93010; 93306; 94640; 94660; 94664; 94762; 96374; 96375; 99285-25; A9270; G0378; J1815; J1885; Q9967

== ENCOUNTER 2023-02-20 12:31 | Observation (INO) | payer MEDICARE, OTHER ==
[~2023-02-20] VITALS: Ht 152.4 cm; Wt 145.0 kg
[~2023-02-20 12:31] MED LIST changes: +XARELTO20 MG PO
[2023-02-20 13:37] LABS: Albumin, Blood 3.5 g/dL (3.4-5.0); Albumin/Globulin Ratio 0.9 (0.8-1.8); Bilirubin, Total 0.3 mg/dL (0.1-1.0); Bun/Creatinine Ratio 24.5 (12.0-20.0); Calcium, Blood 9.2 mg/dL (8.5-10.1); Creatinine, Blood 1.02 mg/dL (0.40-1.00); Globulin, Blood 3.9 g/dL (2.2-4.0); Potassium, Blood 4.8 mmol/L (3.5-5.5); Total Protein, Blood 7.4 g/dL (6.4-8.2)
[2023-02-20 16:20] LABS: BASOPHILS ABSOLUTE AUTO 0.09 K/mm3 (0.00-0.23); BASOPHILS PERCENT AUTO 1 % (0-2); EOSINOPHILS ABSOLUTE AUTO 0.33 K/mm3 (0.00-0.68); EOSINOPHILS PERCENT AUTO 3 % (0-6); Hematocrit 30.7 % (33.0-51.0); Hemoglobin 9.8 g/dL (11.5-16.0); IMMATURE GRAN ABSOLUTE AUTO 0.11 K/mm3 (0.00-0.10); IMMATURE GRAN PERCENT AUTO 1 % (0-1); LYMPHOCYTES ABSOLUTE AUTO 2.47 K/mm3 (0.84-5.20); LYMPHOCYTES PERCENT AUTO 20 % (21-46); MONOCYTES ABSOLUTE AUTO 1.21 K/mm3 (0.16-1.47); MONOCYTES PERCENT AUTO 10 % (4-13); Mean Corpuscular HGB 28.3 pg (26.0-34.0); Mean Corpuscular HGB Conc 31.9 g/dL (31.5-36.5); Mean Corpuscular Volume 89 fL (80-100); Mean Platelet Volume 10.4 fL (9.1-12.4); NEUTROPHILS ABSOLUTE AUTO 8.08 K/mm3 (1.96-9.15); NEUTROPHILS PERCENT AUTO 66 % (41-73); Platelet Count 332 K/mm3 (150-400); RDW Coefficient Variation 15.2 % (11.7-14.2); RDW Standard Deviation 49.6 fL (35.1-46.3); Red Blood Cell Count 3.46 M/mm3 (3.80-5.20); White Blood Cell Count 12.29 K/mm3 (4.00-11.30)
[2023-02-20 18:47] LABS: Hematocrit 28.3 % (33.0-51.0)
[2023-02-20] MEDS ORDERED: NOVOLOG FL100 UNIT/3 (19:53)
[2023-02-20] MEDS ORDERED: CYMBALTA30 M2 PO (19:55)
--- NOTE | 2023-02-20 20:06 | NUR ---
PT CHART REVIEWED FOR ADMISSION
[2023-02-20 22:11] VITALS: BP 91/62
[2023-02-21 00:03] LABS: Hematocrit 28.1 % (33.0-51.0); Hemoglobin 8.9 g/dL (11.5-16.0)
[2023-02-21 03:32] VITALS: BP 109/70
[2023-02-21 05:41] LABS: BASOPHILS ABSOLUTE AUTO 0.05 K/mm3 (0.00-0.23); BASOPHILS PERCENT AUTO 1 % (0-2); EOSINOPHILS ABSOLUTE AUTO 0.45 K/mm3 (0.00-0.68); EOSINOPHILS PERCENT AUTO 4 % (0-6); Hematocrit 27.8 % (33.0-51.0); Hemoglobin 8.8 g/dL (11.5-16.0); IMMATURE GRAN ABSOLUTE AUTO 0.07 K/mm3 (0.00-0.10); IMMATURE GRAN PERCENT AUTO 1 % (0-1); LYMPHOCYTES ABSOLUTE AUTO 1.81 K/mm3 (0.84-5.20); LYMPHOCYTES PERCENT AUTO 16 % (21-46); MONOCYTES ABSOLUTE AUTO 1.04 K/mm3 (0.16-1.47); MONOCYTES PERCENT AUTO 9 % (4-13); Mean Corpuscular HGB 28.1 pg (26.0-34.0); Mean Corpuscular HGB Conc 31.7 g/dL (31.5-36.5); Mean Corpuscular Volume 89 fL (80-100); Mean Platelet Volume 10.2 fL (9.1-12.4); NEUTROPHILS ABSOLUTE AUTO 7.59 K/mm3 (1.96-9.15); NEUTROPHILS PERCENT AUTO 69 % (41-73); Platelet Count 288 K/mm3 (150-400); RDW Coefficient Variation 15.2 % (11.7-14.2); RDW Standard Deviation 49.7 fL (35.1-46.3); Red Blood Cell Count 3.13 M/mm3 (3.80-5.20); White Blood Cell Count 11.01 K/mm3 (4.00-11.30)
[2023-02-21 06:02] LABS: Albumin/Globulin Ratio 0.9 (0.8-1.8); Bilirubin, Total 0.2 mg/dL (0.1-1.0); Bun/Creatinine Ratio 21.1 (12.0-20.0); Calcium, Blood 8.9 mg/dL (8.5-10.1); Globulin, Blood 3.4 g/dL (2.2-4.0); Potassium, Blood 4.2 mmol/L (3.5-5.5); Total Protein, Blood 6.4 g/dL (6.4-8.2)
--- NOTE | 2023-02-21 06:02 | NUR ---
SHIFT SUMMARY PT ARRIVED ON UNIT AT 2208, ORIENTED TO UNIT. NO SKIN ISSUES, PRN TYLENOL GIVEN FOR C/O HIP PAIN WITH POSITIVE RESULTS. PT AAOX3, INCONTINENT WHICH IS HER BASELINE, PUREWICK REMAINS IN PLACE FROM EMERGENCY DEPT WITH RED OUTPUT. D/T INCONTINENCE UNABLE TO COMPLETE A BLOOD SATURATED PAD COUNT. PT ABLE TO S/P TO THE CHAIR WITH MINIMAL ASSIST, EGG CRATE FOAM PLACED ON MATTRESS PER PT REQUEST. FIRE SAFETY EDUCATION EXPLAINED TO PT, NO IGNITION SOURCES FOUND.
[2023-02-21 07:37] VITALS: BP 82/43
[2023-02-21 07:41] VITALS: BP 115/53
[2023-02-21 11:46] LABS: Hematocrit 28.4 % (33.0-51.0)
[2023-02-21] MEDS ORDERED: Masophen325 MG PO (15:01)
[2023-02-21] MEDS ORDERED: MEDR10 PO (15:01)
--- NOTE | 2023-02-21 15:39 | NUR ---
DISCHARGE SUMMARY: PT DISCHARGED HOME WITH HH/PT. PT EDUCATED ON DISCHARGE PLAN AND INSTRUCTIONS AND MEDICATIONS. PT VU. PT DENIED DIZZINESS, CP, NAUSEA WHILE UP WORKING WITH PT OR AT ANY OTHER TIME. PT STATES "I AM READY TO GO HOME." PT ASSISTED WITH PACKING BELONGINGS. PT DRESSED SELF WITH ASSISTANCE APPLPYING BRIEF. PT TRANSFERRED TO HER POWER CHAIR WITH PIVOT [place]. PT ESCORTED TO POV WITH DAUGHTER BY FORMULA WEIGHER.
== END 2023-02-21 15:34 | disposition home or self-care (01) ==
LOC: ER 12:31 → MEDS 12:32 → ENPENDDIS 02-21 12:05 → MEDS 02-21 15:34
PROVIDERS: Physician Assistant; ADMIT Internal Medicine
DX: D68.32 Hemorrhagic disorder due to extrinsic circulating anticoagulants (principal); D62 Acute posthemorrhagic anemia; N92.0 Excessive and frequent menstruation with regular cycle; K63.2 Fistula of intestine; D25.9 Leiomyoma of uterus, unspecified; E66.01 Morbid (severe) obesity due to excess calories; Z68.43 Body mass index [BMI] 50.0-59.9, adult; I48.91 Unspecified atrial fibrillation; Z79.01 Long term (current) use of anticoagulants; N18.30 Chronic kidney disease, stage 3 unspecified; F32.9 Major depressive disorder, single episode, unspecified; Z88.5 Allergy status to narcotic agent; Z88.8 Allergy status to other drugs, medicaments and biological substances; Z88.2 Allergy status to sulfonamides; Z88.1 Allergy status to other antibiotic agents; Z79.4 Long term (current) use of insulin; E11.65 Type 2 diabetes mellitus with hyperglycemia; Z86.73 Personal history of transient ischemic attack (TIA), and cerebral infarction without residual deficits
CPT/HCPCS: 36415; 74177; 80053; 82947; 83690; 85014; 85018; 85025; 97162; 99285-25; A9270; G0378; J1815; J7030; Q9967

== ENCOUNTER 2023-06-29 13:24 | Emergency (ER) | payer MEDICARE, OTHER ==
[~2023-06-29] VITALS: Ht 162.6 cm; Wt 158.8 kg
[~2023-06-29 13:24] MED LIST changes: +CYMBALTA30 M2 PO; +MEDR10 PO; +Masophen325 MG PO; +NOVOLOG FL100 UNIT/3
[2023-06-29 14:36] LABS: BASOPHILS ABSOLUTE AUTO 0.06 K/mm3 (0.00-0.23); BASOPHILS PERCENT AUTO 1 % (0-2); EOSINOPHILS ABSOLUTE AUTO 0.02 K/mm3 (0.00-0.68); EOSINOPHILS PERCENT AUTO 0 % (0-6); Hematocrit 37.5 % (33.0-51.0); Hemoglobin 12.1 g/dL (11.5-16.0); IMMATURE GRAN ABSOLUTE AUTO 0.08 K/mm3 (0.00-0.10); IMMATURE GRAN PERCENT AUTO 1 % (0-1); LYMPHOCYTES ABSOLUTE AUTO 1.09 K/mm3 (0.84-5.20); LYMPHOCYTES PERCENT AUTO 12 % (21-46); MONOCYTES ABSOLUTE AUTO 1.14 K/mm3 (0.16-1.47); MONOCYTES PERCENT AUTO 12 % (4-13); Mean Corpuscular HGB 28.8 pg (26.0-34.0); Mean Corpuscular HGB Conc 32.3 g/dL (31.5-36.5); Mean Corpuscular Volume 89 fL (80-100); Mean Platelet Volume 10.5 fL (9.1-12.4); NEUTROPHILS ABSOLUTE AUTO 6.88 K/mm3 (1.96-9.15); NEUTROPHILS PERCENT AUTO 74 % (41-73); Platelet Count 230 K/mm3 (150-400); RDW Coefficient Variation 14.3 % (11.7-14.2); RDW Standard Deviation 46.4 fL (35.1-46.3); White Blood Cell Count 9.27 K/mm3 (4.00-11.30)
[2023-06-29 14:54] LABS: Albumin, Blood 2.9 g/dL (3.4-5.0); Albumin/Globulin Ratio 0.7 (0.8-1.8); Bilirubin, Total 0.2 mg/dL (0.1-1.0); Bun/Creatinine Ratio 26.3 (12.0-20.0); Calcium, Blood 8.1 mg/dL (8.5-10.1); Creatinine, Blood 0.84 mg/dL (0.40-1.00); Globulin, Blood 4.2 g/dL (2.2-4.0); Potassium, Blood 4.1 mmol/L (3.5-5.5); Total Protein, Blood 7.1 g/dL (6.4-8.2)
[2023-06-29 15:09] LABS: Influenza A, PCR NEGATIVE (NEGATIVE); Influenza B, PCR NEGATIVE (NEGATIVE); Resp Syncytial Virus, PCR NEGATIVE (NEGATIVE)
[2023-06-29 15:28] LABS: SARS-Cov-2 (COVID-19) PCR, MMC POSITIVE (NEGATIVE)
[2023-06-29 16:09] VITALS: BP 114/70
[2023-06-29] MEDS ORDERED: Prednisone20 MG PO (16:25)
== END 2023-06-29 17:35 | disposition home or self-care (01) ==
LOC: ER 13:24
PROVIDERS: Emergency Medicine
DX: U07.1 COVID-19 (principal); J45.901 Unspecified asthma with (acute) exacerbation; I12.9 Hypertensive chronic kidney disease with stage 1 through stage 4 chronic kidney disease, or unspecified chronic kidney disease; E11.22 Type 2 diabetes mellitus with diabetic chronic kidney disease; N18.30 Chronic kidney disease, stage 3 unspecified; Z88.8 Allergy status to other drugs, medicaments and biological substances; Z88.5 Allergy status to narcotic agent; Z79.4 Long term (current) use of insulin; Z79.899 Other long term (current) drug therapy; Z86.73 Personal history of transient ischemic attack (TIA), and cerebral infarction without residual deficits; Z87.891 Personal history of nicotine dependence
CPT/HCPCS: 0241U; 71045; 80053; 83880; 84484; 85025; 93005; 93010; 94644; 94664; 96374; 99285-25; J2930